=== PATIENT | male | born 1975 | race Caucasian/White ===

== ENCOUNTER → 2016-06-27 | Outpatient (CLI) | payer OTHER ==
--- NOTE | ~2016-06-27 | US6 ---
[facility] A Service of [facility] RADIOLOGY TEXT RESULTS PATIENT: JAIR JUNIOR LOCATION: [facility] : 77 UNIT #: [id number] AGE: [address]: Andrea Denise MD SEX: M ORDER DR: [id number] [facility]. [place], [place] [address] [id number] MR#: [id number] Acc #: [id number] NAME: JAIR JUNIOR : 1975 SEX: M STUDY DATE/TIME: 06/27/2016 10:24 UNIT: US ROOM: STUDY DESCRIPTION: US Abdominal Limited Attending Physician: Andrea Denise M.D. Referring Physician: Andrea Denise M.D. Ordering Physician: Andrea Denise M.D. Primary Care Physician: Lillie Chatman M.D. MEDICAL IMAGING REPORT This report is preliminary unless electronic signature is present EXAM Right upper quadrant abdominal ultrasound INDICATION Epigastric abdominal pain for the past month. PROCEDURE Stevens-scale and Doppler imaging right upper quadrant of the abdomen. COMPARISON None FINDINGS Pancreas is mostly obscured and not well seen. The liver is difficult to evaluate on this study. It measures approximately 14.2 cm. Right kidney measures 9.1 cm, not well seen but shows no obvious hydronephrosis. Unremarkable gallbladder and the common duct measures approximately 6.0 mm. Common duct is not well seen. IMPRESSION 1. Technically difficult study with multiple structures not well seen. The common duct is measured at prominent for the patient's age but again is not well seen and could be an overestimation. 2. Otherwise no definite acute findings. Dictated by... Matty Bermudez M.D. THIS IS AN ELECTRONICALLY VERIFIED REPORT Matty Bermudez M.D. at 06/30/2016 8:23 AM Faheem TD: 06/27/2016 13:23 [facility] A Service of [facility] RADIOLOGY TEXT RESULTS PATIENT: JAIR JUNIOR LOCATION: [facility] : 77 UNIT #: [id number] AGE: [address]: Andrea Denise MD SEX: M ORDER DR: JARED #: [id number] MEDICAL IMAGING REPORT Page 1 of 1 COPY
== END | disposition home or self-care (01) ==
LOC: CGUS 09:53
DX: R10.13 Epigastric pain (principal)
CPT/HCPCS: 76705